=== PATIENT | male | born 1950 | race Caucasian/White ===

== ENCOUNTER 2022-08-01 02:57 | Emergency (ER) | payer MEDICARE, OTHER ==
[~2022-08-01] VITALS: Ht 177.8 cm; Wt 83.9 kg
--- NOTE | 2022-08-01 03:00 | NUR ---
gillian from [facility] c/o chronic back pain, was unable to make appt. Pt called 911 because he has not gotten any pain relief. Patient is AAOX4. Able to make needs known. Attached to monitor. Vitals checked.
[2022-08-01] MEDS ORDERED: GABAPENTIN 100 MG CAPSULE PO ONE (03:30)
--- NOTE | 2022-08-01 03:40 | NUR ---
BROUGHT TO CT DEPT
[2022-08-01] MEDS ORDERED: GABAPENTIN 100 MG CAPSULE ONE (03:53)
--- NOTE | 2022-08-01 05:40 | NUR ---
REPORT GIVEN TO TORSTEN AT [facility] OVER THE PHONE. [facility] ETA: [phone]
--- NOTE | 2022-08-01 07:53 | NUR ---
EMT AT BEDSIDE TO PICKUP PT
[2022-08-01 08:01] VITALS: BP 132/71
--- NOTE | 2022-08-01 08:02 | NUR ---
Juan carney in EDM - 08/01/22 at 0802 by EVELIO Patient discharged to snf via [facility] in stable condition, accompanied by 2 [address]. Written and verbal after care instructions given. Patient verbalizes understanding of instruction.
--- NOTE | 2022-08-01 08:02 | NUR ---
Patient discharged to snf in stable condition. Written and verbal after care instructions given. Patient verbalizes understanding of instruction.
== END 2022-08-01 08:02 ==
LOC: ER 02:59
DX: M54.50 Low back pain, unspecified (principal); M19.09 Primary osteoarthritis, other specified site; I10 Essential (primary) hypertension; Z94.0 Kidney transplant status
CPT/HCPCS: 72131-TC

== ENCOUNTER 2022-09-02 19:36 | Inpatient (IN) | payer MEDICARE, OTHER ==
[~2022-09-02] VITALS: Ht 167.6 cm; Wt 76.3 kg
--- NOTE | 2022-09-02 20:28 | NUR ---
JERRY C/O BACK PAIN X 3 DAYS
--- NOTE | 2022-09-02 21:41 | NUR ---
COVID SWAB COLLECTED
--- NOTE | 2022-09-02 21:41 | NUR ---
IV LINE RAC20G ESTABLISHED
--- NOTE | 2022-09-02 21:41 | NUR ---
BLOOD AND CULTURES COLLECTED
[2022-09-02 21:43] LABS: BASOPHILS % (AUTO) 0.5 % (0.0-2.0); EOSINOPHILS % (AUTO) 1.7 % (0.0-6.0); HEMATOCRIT 31 % (39-51); HEMOGLOBIN 10.1 g/dL (13.5-17.5); LYMPHOCYTES # (AUTO) 0.7 K/uL (0.8-4.8); LYMPHOCYTES % (AUTO) 11.2 % (20.0-44.0); MEAN CORPUSCULAR HGB CONC 33 g/dl (31.0-36.0); MEAN CORPUSCULAR VOLUME 90 fL (80-96); MONOCYTES # (AUTO) 0.7 K/uL (0.1-1.30); NEUTROPHILS % (AUTO) 75.6 % (43.0-81.0); PLATELET COUNT (AUTO) 256 K/uL (150-450); RED BLOOD CELL COUNT(AUTO) 3.46 MIL/uL (4.5-6.0); WHITE BLOOD COUNT (AUTO) 6.6 K/uL (4.3-11.0)
[2022-09-02 21:53] LABS: CALCIUM, SERUM 8.7 mg/dL (8.5-10.1); CARBON DIOXIDE 29 mmol/L (21-32); CHLORIDE 102 mmol/L (98-107); GLUCOSE 113 mg/dL (74-106); POTASSIUM 4.8 mmol/L (3.5-5.1); SODIUM SERUM 134 mmol/L (136-145); UREA NITROGEN, BLOOD 42 mg/dL (7-18)
[2022-09-02 21:59] LABS: ALANINE AMINOTRANSFERASE 36 U/L (12-78); ALBUMIN 2.6 g/dL (3.4-5.0); ALKALINE PHOSPHATASE 72 U/L (46-116); ASPARTATE AMINOTRANSFERASE 31 U/L (15-37); BILIRUBIN,DIRECT 0.6 mg/dL (0.0-0.2); BILIRUBIN,TOTAL 0.9 mg/dL (0.2-1.0); TOTAL PROTEIN, SERUM 6.8 g/dL (6.4-8.2)
[2022-09-02 22:09] LABS: BILIRUBIN,URINE NEGATIVE (NEGATIVE); COLOR,URINE YELLOW (YELLOW); LEUKOCYTE ESTERASE ,URINE NEGATIVE (NEGATIVE); NITRITE, URINE NEGATIVE (NEGATIVE); PROTEIN,URINE 1+ mg/dl (NEGATIVE); UGLUCOSE NEGATIVE (NEGATIVE)
[2022-09-02 22:14] LABS: BACTERIA,URINE None seen /HPF (None Seen); MUCUS,URINE Few /LPF (None Seen); RBC,URINE 0-2 /HPF (0-2); WBC,URINE 0-2 /HPF (0-3)
[2022-09-02] MEDS ORDERED: CEFTRIAXONE 1GM BAG (ER ONLY) 1 GM/50 ML PIGGYBACK IV ONE (23:30)
[2022-09-02] MEDS ORDERED: FOLIC ACID 1 MG TABLET PO ONE (23:30)
[2022-09-02] MEDS ORDERED: VANCOMYCIN 1 GM in IV D5W 250 ML IV ONE (23:30)
[2022-09-02] MEDS ORDERED: TAMSULOSIN 0.4 MG CAP.SR.24H PO ONE (23:30)
[2022-09-02] MEDS ORDERED: ACYCLOVIR IV 500 MG in IV D5W 100 ML IV ONE (23:30)
[2022-09-02] MEDS ORDERED: CEFTRIAXONE 1GM BAG (ER ONLY) 50 ML IV ONE (23:40)
--- NOTE | 2022-09-02 23:46 | NUR ---
PT IS RESTING COMFORTABLY IN BED, WARM BLANKETS PROVIDED. ALL NEEDS ARE MET AT THIS TIME. WILL CONTINUE TO MONITOR
[2022-09-03] MEDS ORDERED: ONDANSETRON HCL/PF 4 MG/2 ML VIAL IVP PRN
[2022-09-03] MEDS ORDERED: ACETAMINOPHEN 325 MG TABLET PO PRN
[2022-09-03] MEDS ORDERED: MAGNESIUM HYDROXIDE 30 ML UDC PO PRN
[2022-09-03] MEDS ORDERED: MAG HYDROX/AL HYDROX/SIMETH 30 ML UDC PO PRN
[2022-09-03] MEDS ORDERED: Z GUARD REMEDY 4 OZ OINT TP PRN
[2022-09-03] MEDS ORDERED: TEMAZEPAM 15 MG CAPSULE PO PRN
[2022-09-03] MEDS ORDERED: VANCOMYCIN 1 GM VIAL ONE (00:09)
[2022-09-03] MEDS ORDERED: MORPHINE SULFATE INJ 4 MG/ML DISP.SYRIN ONE (00:15)
[2022-09-03] MEDS ORDERED: ONDANSETRON HCL/PF 4 MG/2 ML VIAL IV ONE (00:30)
[2022-09-03] MEDS ORDERED: MORPHINE SULFATE INJ 2 MG/ML DISP.SYRIN IV ONE (00:30)
[2022-09-03] MEDS ORDERED: IV NS 0.9% 1,000 ML IV ONE (00:30)
--- NOTE | 2022-09-03 01:21 | NUR ---
REPORT GIVEN TO KUN VARGHESE
[2022-09-03] MEDS ORDERED: ACYCLOVIR IV 500 MG VIAL IV ONE (01:24)
--- NOTE | 2022-09-03 01:35 | NUR ---
PT WAS TRANSFERRED TO THIRD FLOOR IN STABLE CONDITION
--- NOTE | 2022-09-03 01:45 | NUR ---
CERTIFIED OPHTHALMIC ASSISTANT NOTES PATIENT RECEIVED FROM ER VIA RZACK ACCOMPANIED BY RN AND CHURN DRILLER HELPER. ON [address] TOLERATING WELL. 02 SAT 100%. VITAL SIGNS TAKEN AND RECORDED. IV ACCESS AT RIGHT AC #20, INTACT AND PATENT, INFUSING NS @75ML/H. SKIN ISSUES NOTED AND DOCUMENTED. ORIENTED TO ROOM SET-UP. SAFETY MEASURES INITIATED. COMPLAINS OF BACK PAIN, ACHING AND MOANING, RATED 6/10 PAIN SCALE. GIVEN NORCO 1 TAB. TOLERATING WELL. ADMINISTERED ORDERED MEDICATION. WILL CONTINUE TO MONITOR.
[2022-09-03] MEDS: IV NS 0.9% 1,000 ML IV PRN ×2 (03:05→16:24)
[2022-09-03] MEDS: HYDROCODONE/APAP 5/325MG TABLET PO PRN ×2 (04:15→13:51)
[2022-09-03] MEDS ORDERED: FOLIC ACID 1 MG TABLET ONE (04:27)
[2022-09-03] MEDS ORDERED: TAMSULOSIN 0.4 MG CAP.SR.24H ONE (04:28)
--- NOTE | 2022-09-03 06:48 | NUR ---
RN CLOSING NOTES PATIENT LYING AWAKE IN BED. ON 02 2LPM VIA NC. TOLERATING WELL. 02 SAT 100%. VITAL SIGNS TAKEN AND RECORDED. IV ACCESS AT RIGHT AC #20, INTACT AND PATENT, INFUSING NS @75ML/H. SKIN ISSUES NOTED AND DOCUMENTED. SAFETY MEASURES MAINTAINED. NO COMPLAIN OF PAIN AT THIS TIME. TOLERATING WELL. ON REVERSE ISOLATION/ CONTACT PREC. WILL ENDORSE TO NEXT SHIFT RN FOR NEDRA.
--- NOTE | 2022-09-03 07:30 | NUR ---
MS RN OPENING NOTES RECEIVED PATIENT ON BED AWAKE AND A/O X3-4. ON O2 AT 2LPM VIA NASAL CANNULA TOLERATING WELL. NO SOB NOTED. NOT IN DISTRESS. WITH COMPLAINTS OF PAIN AT THE CHEST AND BACK AT THE SCALE OF 5/10. COMFORT MEASURES PROVIDED. WITH IV ACCESS AT THE RIGHT AC G20 WITH IVF NS AT 75ML/HR INFUSING WELL. SAFETY MEASURES IN PLACED. CALL LIGHT WITHIN REACH. BED ON LOWEST LOCKED POSITION, SIDE RAILS UP X2. WILL CONTINUE TO MONITOR.
[2022-09-03 08:00] VITALS: BP 109/58
[2022-09-03 08:00] LABS: BASOPHILS % (AUTO) 0.5 % (0.0-2.0); EOSINOPHILS % (AUTO) 2.3 % (0.0-6.0); HEMATOCRIT 29 % (39-51); HEMOGLOBIN 9.5 g/dL (13.5-17.5); LYMPHOCYTES # (AUTO) 0.8 K/uL (0.8-4.8); LYMPHOCYTES % (AUTO) 13.5 % (20.0-44.0); MEAN CORPUSCULAR HGB CONC 33 g/dl (31.0-36.0); MEAN CORPUSCULAR VOLUME 90 fL (80-96); MONOCYTES # (AUTO) 0.7 K/uL (0.1-1.30); MONOCYTES % (AUTO) 12.7 % (2.0-12.0); NEUTROPHILS # (AUTO) 4.1 K/uL (1.8-8.9); PLATELET COUNT (AUTO) 246 K/uL (150-450); WHITE BLOOD COUNT (AUTO) 5.8 K/uL (4.3-11.0)
[2022-09-03 08:14] LABS: CALCIUM, SERUM 8.5 mg/dL (8.5-10.1); CARBON DIOXIDE 26 mmol/L (21-32); CHLORIDE 103 mmol/L (98-107); CREATININE 1.8 mg/dL (0.6-1.3); GLUCOSE 114 mg/dL (74-106); MAGNESIUM 2.5 mg/dL (1.8-2.4); PHOSPHORUS 5.1 mg/dL (2.5-4.9); POTASSIUM 4.1 mmol/L (3.5-5.1); SODIUM SERUM 137 mmol/L (136-145); THYROID STIMULATING HORMONE 1.809 uIU/mL (0.358-3.74); UREA NITROGEN, BLOOD 38 mg/dL (7-18)
--- NOTE | 2022-09-03 08:22 | NUR ---
WOUND CARE CONSULT: PT PRESENTS WITH LARGE AREA OF DRY LESIONS TO ANTERIOR CHEST WELL SOME OPEN LESIONS WITH CRUSTING TO RT UPPER BACK, PRESENT ON ADMISSION. RECOMMENDATIONS MADE FOR SKIN PROTECTION AND WOUND CARE. DISCUSSED WITH NURSING STAFF. PT STATES THAT LESIONS IN THE BACK ARE EXTREMELY PAINFUL. MD IN AGREEMENT WITH PLAN OF CARE.
[2022-09-03] MEDS: MYCOPHENOLATE MOFETIL 250 MG CAPSULE PO SCH ×2 (08:42→20:15)
[2022-09-03] MEDS: VALSARTAN 80 MG TABLET PO SCH (08:42)
[2022-09-03] MEDS: predniSONE 5 MG TABLET PO SCH (08:42)
[2022-09-03] MEDS: GABAPENTIN 100 MG CAPSULE PO SCH ×2 (08:42→16:15)
[2022-09-03] MEDS: MULTIVITAMIN/LUTEIN/MINERALS 1 TAB PO SCH (08:42)
[2022-09-03] MEDS: PANTOPRAZOLE 40 MG TABLET.DR PO SCH (08:43)
[2022-09-03] MEDS: DOXYCYCLINE HYCLATE (100 MG) 100 MG TABLET PO SCH ×2 (08:43→20:16)
[2022-09-03] MEDS: MORPHINE SULFATE INJ 2 MG/ML DISP.SYRIN IV PRN ×2 (08:44→20:09)
[2022-09-03] MEDS: APIXABAN 5 MG TABLET PO SCH ×2 (08:44→16:16)
[2022-09-03] MEDS ORDERED: predniSONE 10 MG TABLET PO SCH (09:00)
[2022-09-03] MEDS ORDERED: ACYCLOVIR IV 500 MG in IV D5W 100 ML IV SCH (09:00)
[2022-09-03] MEDS ORDERED: VALS80TA31 PO (09:23)
[2022-09-03] MEDS ORDERED: CYCL25CA7 PO (09:23)
[2022-09-03] MEDS ORDERED: VITA80008 PO (09:23)
[2022-09-03] MEDS ORDERED: CYCL100C8 PO (09:23)
[2022-09-03] MEDS ORDERED: MAGN500C16 PO (09:23)
[2022-09-03] MEDS ORDERED: PYRI100T10 PO (09:23)
[2022-09-03] MEDS ORDERED: CYAN500T9 PO (09:23)
[2022-09-03] MEDS ORDERED: FOLI0.4T6 PO (09:23)
[2022-09-03] MEDS ORDERED: VITA1TAB56 PO (09:23)
[2022-09-03] MEDS ORDERED: OMEP20CA15 PO (09:23)
[2022-09-03] MEDS ORDERED: VITA-354 PO (09:23)
[2022-09-03] MEDS ORDERED: PRED5TAB PO (09:23)
[2022-09-03] MEDS ORDERED: PENT400T17 PO (09:23)
[2022-09-03] MEDS ORDERED: TAMS-12 PO (09:23)
[2022-09-03] MEDS ORDERED: OMEG1CAP PO (09:23)
[2022-09-03] MEDS ORDERED: APIX5TAB PO (09:23)
[2022-09-03] MEDS ORDERED: FINA5TAB11 PO (09:23)
[2022-09-03] MEDS ORDERED: ATOR40TA PO (09:23)
[2022-09-03] MEDS ORDERED: MULT-447 PO (09:23)
[2022-09-03] MEDS ORDERED: THIA100T70 PO (09:23)
[2022-09-03] MEDS ORDERED: GABA-536 PO (09:23)
[2022-09-03] MEDS ORDERED: MYCO500T5 PO (09:23)
[2022-09-03] MEDS ORDERED: ACYCLOVIR IV 1 GM in IV D5W 250 ML IV SCH (13:00)
[2022-09-03 16:00] VITALS: BP 105/56
--- NOTE | 2022-09-03 18:35 | NUR ---
MS RN CLOSING NOTES PATIENT ON BED AWAKE AND A/O X3-4. ON O2 AT 2LPM VIA NASAL CANNULA TOLERATING WELL. NO SOB NOTED. NOT IN DISTRESS. WITH COMPLAINTS OF PAIN AT THE CHEST AND BACK AT THE SCALE OF 5/10. COMFORT MEASURES PROVIDED. WITH IV ACCESS AT THE RIGHT AC G20 WITH IVF NS AT 75ML/HR INFUSING WELL. DUE MEDS GIVEN. SAFETY MEASURES IN PLACED. CALL LIGHT WITHIN REACH. BED ON LOWEST LOCKED POSITION, SIDE RAILS UP X2. WILL ENDORSE TO NEXT SHIFT FOR NEDRA.
[2022-09-03 20:00] VITALS: BP 109/52
--- NOTE | 2022-09-03 21:10 | NUR ---
MS RN OPENING NOTES RECEIVED PATIENT ON BED AWAKE AND A/O X3-4. ON O2 AT 2LPM VIA NASAL CANNULA TOLERATING WELL. NO SOB NOTED. NOT IN DISTRESS. WITH COMPLAINTS OF PAIN AT THE CHEST AND BACK AT THE SCALE OF 8/10. GIVEN MORPHINE IV PRN ORDERED. DUE MEDS GIVEN. COMFORT MEASURES PROVIDED. WITH IV ACCESS AT THE RIGHT AC G20 WITH IVF NS AT 75ML/HR INFUSING WELL. SAFETY MEASURES IN PLACED. CALL LIGHT WITHIN REACH. BED ON LOWEST LOCKED POSITION, SIDE RAILS UP X2. WILL CONTINUE TO MONITOR.
[2022-09-03] MEDS: ATORVASTATIN 40 MG TABLET PO SCH (21:21)
[2022-09-03] MEDS: CEFTRIAXONE 2 G in IV D5W 50 ML IV SCH (21:21)
--- NOTE | 2022-09-03 21:43 | NUR ---
RN NOTES PATIENT REQUESTED FOR A SLEEPING PILL. HES EXHAUSTED AND WANTED TO SLEEP VERBALIZED. GIVEN RESTORIL ORALLY PRN ORDERED. KEPT COMFORTABLE. WILL CONTINUE TO MONITOR.
[2022-09-03] MEDS ORDERED: CEFTRIAXONE 1 G in IV D5W 50 ML IV SCH (22:00)
[2022-09-03] MEDS ORDERED: VANCOMYCIN HCL 0.75 GM in IV D5W 250 ML IV SCH (23:00)
[2022-09-04] MEDS: IV NS 0.9% 1,000 ML IV PRN ×2 (06:20→18:46)
--- NOTE | 2022-09-04 06:37 | NUR ---
MS RN CLOSING NOTES PATIENT LYING IN BED ASLEEP. A/O X3-4. ON O2 AT 2LPM VIA NASAL CANNULA TOLERATING WELL. NO SOB NOTED. NOT IN DISTRESS. NO COMPLAINS OF PAIN AT THIS TIME. DUE MEDS GIVEN. COMFORT MEASURES PROVIDED. WITH IV ACCESS AT THE RIGHT AC G20 WITH IVF NS AT 75ML/HR INFUSING WELL. SAFETY MEASURES IN PLACED. CALL LIGHT WITHIN REACH. BED ON LOWEST LOCKED POSITION, SIDE RAILS UP X2. WILL ENDORSE TO NEXT SHIFT RN FOR NEDRA.
--- NOTE | 2022-09-04 07:25 | NUR ---
MS RN OPENING NOTES RECEIVED PATIENT RESTING IN BED AWAKE, A/O X3-4, ABLE TO MAKE NEEDS KNOWN. ON O2, 2LPM VIA NASAL CANNULA, TOLERATING WELL. NO SOB OR DISTRESS NOTED. NO PAIN NOTED AT THIS TIME. IV ACCESS AT THE RIGHT AC G20 WITH IVF NS AT 75ML/HR INFUSING WELL WITH NO SIGNS OF INFILTRATION OR DISCOMFORT. SAFETY MEASURES IN PLACED. CALL LIGHT AND TRAY WITHIN REACH. BED IN LOWEST LOCKED POSITION, SIDE RAILS UP X2. WILL CONTINUE TO MONITOR.
[2022-09-04] MEDS: PANTOPRAZOLE 40 MG TABLET.DR PO SCH (07:37)
[2022-09-04 08:00] VITALS: BP 139/67
[2022-09-04 08:00] LABS: CALCIUM, SERUM 8.4 mg/dL (8.5-10.1); CARBON DIOXIDE 25 mmol/L (21-32); CHLORIDE 105 mmol/L (98-107); CREATININE 1.9 mg/dL (0.6-1.3); GLUCOSE 109 mg/dL (74-106); POTASSIUM 4.3 mmol/L (3.5-5.1); SODIUM SERUM 140 mmol/L (136-145); UREA NITROGEN, BLOOD 34 mg/dL (7-18)
[2022-09-04] MEDS: DOXYCYCLINE HYCLATE (100 MG) 100 MG TABLET PO SCH ×2 (08:23→21:06)
[2022-09-04] MEDS: predniSONE 5 MG TABLET PO SCH (08:24)
[2022-09-04] MEDS: GABAPENTIN 100 MG CAPSULE PO SCH ×2 (08:24→16:25)
[2022-09-04] MEDS: MULTIVITAMIN/LUTEIN/MINERALS 1 TAB PO SCH (08:24)
[2022-09-04] MEDS: MYCOPHENOLATE MOFETIL 250 MG CAPSULE PO SCH ×2 (08:25→21:06)
[2022-09-04] MEDS: VALSARTAN 80 MG TABLET PO SCH (08:25)
[2022-09-04] MEDS: MORPHINE SULFATE INJ 2 MG/ML DISP.SYRIN IV PRN ×2 (08:28→16:27)
--- NOTE | 2022-09-04 08:30 | NUR ---
RN NOTE PATIENT COMPLAINING OF PAIN WITH FACIAL GRIMACING AND MOANING. PAIN THROUGHOUT BODY AND BACK. GAVE MORPHINE, WHICH WAS EFFECTIVE LOWERING PAIN RATE FROM AN 8 TO A 3.
[2022-09-04] MEDS: APIXABAN 5 MG TABLET PO SCH ×2 (09:10→16:26)
[2022-09-04 16:00] VITALS: BP 135/71
--- NOTE | 2022-09-04 18:27 | NUR ---
MS RN CLOSING NOTE PATIENT IN BED RESTING AT THIS TIME. A/O X 4, ABLE TO MAKE NEEDS KNOWN. ON ROOM AIR, BREATHING EVENLY, NON-LABORED, NO SOB OR RESPIRATORY DISTRESS NOTED, IV ACCESS ON LAC #22 INFUSING D5NS AT 50ML.HR. ALL NEEDS MET AT THIS TIME. PAIN MANAGED VIA MEDICATION AND TOLERABLE AT THIS TIME. SAFETY PRECAUTIONS IN PLACE; BED IN LOWEST LOCKED POSITION, SIDE RAILS UP X2, CALL LIGHT AND TRAY WITHIN REACH. WILL ENDORSE TO LOCK TECHNICIAN NURSE FOR NEDRA.
[2022-09-04 20:00] VITALS: BP 130/69
[2022-09-04] MEDS: ATORVASTATIN 40 MG TABLET PO SCH (21:06)
[2022-09-04] MEDS: CEFTRIAXONE 2 G in IV D5W 50 ML IV SCH (21:06)
[2022-09-05] MEDS: MORPHINE SULFATE INJ 2 MG/ML DISP.SYRIN IV PRN ×3 (02:41→22:56)
--- NOTE | 2022-09-05 02:50 | NUR ---
RN NOTES - PATIENT COMPLAINS OF PAIN AT BACK. RATED 9/10. MOANING AND IRRITABLE. GIVEN MORPHINE IV PRN ORDERED. TOLERATED WELL. WOUND DRESSING DONE. FOR WOUND DEBRIDEMENT TODAY. TO SECURE CONSENT. KEPT COMFORTABLE.
[2022-09-05] MEDS ORDERED: LIDOCAINE 1%-EPI 1:100,000 20 ML VIAL TP ONE (06:00)
[2022-09-05] MEDS ORDERED: SILVER NITRATE APPLICATOR 1 EA BOX TP SCH (06:00)
--- NOTE | 2022-09-05 06:48 | NUR ---
MS RN CLOSING NOTE PATIENT IN BED RESTING AT THIS TIME. A/O X 4, ABLE TO MAKE NEEDS KNOWN. ON ROOM AIR, BREATHING EVENLY, NON-LABORED, NO SOB OR RESPIRATORY DISTRESS NOTED, IV ACCESS ON LAC #22 INFUSING D5NS AT 50ML.HR. ALL NEEDS MET AT THIS TIME. PAIN MANAGED VIA MEDICATION AND TOLERABLE AT THIS TIME. SAFETY PRECAUTIONS IN PLACE; BED IN LOWEST LOCKED POSITION, SIDE RAILS UP X2, CALL LIGHT AND TRAY WITHIN REACH. WILL ENDORSE TO DAY SHIFT NURSE FOR NEDRA.
[2022-09-05 08:00] VITALS: BP 110/63
--- NOTE | 2022-09-05 08:01 | NUR ---
RN OPENING NOTE PATIENT AWAKE IN BED RESTING AT THE MOMENT A/O X 3-4. NO S/S OF PAIN NOTED AT THIS TIME. ON 2L OXYGEN VIA NC, NO DISTRESS OR SHORTNESS OF BREATH NOTED. IV ACCESS RAC #20G, INTACT, PATENT AND FLUSHING WELL. FALL AND SAFETY MEASURES IN PLACE, BED ALARM ON, BED IN LOW AND LOCK POSITION, CALL LIGHT AND TABLE WITHIN EASY REACH, SIDE RAILS UP X2. WILL CONTINUE TO MONITOR.
[2022-09-05 08:04] LABS: BASOPHILS % (AUTO) 0.6 % (0.0-2.0); HEMATOCRIT 28 % (39-51); HEMOGLOBIN 9.1 g/dL (13.5-17.5); LYMPHOCYTES % (AUTO) 19.1 % (20.0-44.0); MEAN CORPUSCULAR HGB CONC 33 g/dl (31.0-36.0); MEAN CORPUSCULAR VOLUME 91 fL (80-96); MONOCYTES # (AUTO) 0.4 K/uL (0.1-1.30); MONOCYTES % (AUTO) 8.4 % (2.0-12.0); NEUTROPHILS # (AUTO) 3.6 K/uL (1.8-8.9); NEUTROPHILS % (AUTO) 69.9 % (43.0-81.0); PLATELET COUNT (AUTO) 245 K/uL (150-450); RED BLOOD CELL COUNT(AUTO) 3.04 MIL/uL (4.5-6.0); WHITE BLOOD COUNT (AUTO) 5.2 K/uL (4.3-11.0)
[2022-09-05 08:20] LABS: CALCIUM, SERUM 8.2 mg/dL (8.5-10.1); CARBON DIOXIDE 26 mmol/L (21-32); CHLORIDE 108 mmol/L (98-107); CREATININE 1.8 mg/dL (0.6-1.3); GLUCOSE 88 mg/dL (74-106); MAGNESIUM 2.1 mg/dL (1.8-2.4); PHOSPHORUS 4.3 mg/dL (2.5-4.9); POTASSIUM 4.1 mmol/L (3.5-5.1); SODIUM SERUM 142 mmol/L (136-145); UREA NITROGEN, BLOOD 28 mg/dL (7-18)
[2022-09-05] MEDS: APIXABAN 5 MG TABLET PO SCH ×2 (09:00→17:49)
[2022-09-05] MEDS: IV NS 0.9% 1,000 ML IV PRN (09:22)
[2022-09-05] MEDS: DOXYCYCLINE HYCLATE (100 MG) 100 MG TABLET PO SCH ×2 (09:23→21:02)
[2022-09-05] MEDS: GABAPENTIN 100 MG CAPSULE PO SCH (09:23)
[2022-09-05] MEDS: VALSARTAN 80 MG TABLET PO SCH (09:23)
[2022-09-05] MEDS: PANTOPRAZOLE 40 MG TABLET.DR PO SCH (09:24)
[2022-09-05] MEDS: MYCOPHENOLATE MOFETIL 250 MG CAPSULE PO SCH ×2 (09:27→21:02)
[2022-09-05] MEDS: MULTIVITAMIN/LUTEIN/MINERALS 1 TAB PO SCH (09:27)
[2022-09-05] MEDS: predniSONE 5 MG TABLET PO SCH ×2 (09:28→17:48)
--- NOTE | 2022-09-05 10:06 | NUR ---
RN note 0900 apixaban was held for wound debridement scheduled for today.
[2022-09-05] MEDS ORDERED: MYCOPHENOLATE MOFETIL 250 MG CAPSULE PO SCH (13:00)
[2022-09-05 16:00] VITALS: BP 138/63
[2022-09-05] MEDS ORDERED: APIXABAN 5 MG TABLET PO SCH (17:00)
[2022-09-05] MEDS ORDERED: GABAPENTIN 400 MG CAPSULE PO SCH (17:00)
[2022-09-05] MEDS: TAMSULOSIN 0.4 MG CAP.SR.24H PO SCH (17:48)
[2022-09-05] MEDS: GABAPENTIN 400 MG CAPSULE PO SCH (17:48)
[2022-09-05] MEDS ORDERED: VALSARTAN 80 MG TABLET PO SCH (18:00)
[2022-09-05] MEDS ORDERED: ATORVASTATIN 40 MG TABLET PO SCH (18:00)
[2022-09-05] MEDS: PENTOXIFYLLINE 400 MG TABLET.SA PO SCH (18:13)
--- NOTE | 2022-09-05 18:53 | NUR ---
RN CLOSING NOTE PATIENT AWAKE IN BED RESTING AT THE MOMENT A/O X 3-4. NO S/S OF PAIN NOTED AT THIS TIME. ON 2L OXYGEN VIA NC, NO DISTRESS OR SHORTNESS OF BREATH NOTED. IV ACCESS RAC #20G, INTACT, PATENT AND FLUSHING WELL. SCHEDULE MEDICATIONS ADMINISTERED. PATIENT WILL HAVE WOUND DEBRIDEMENT TOMORROW. FALL AND SAFETY MEASURES IN PLACE, BED ALARM ON, BED IN LOW AND LOCK POSITION, CALL LIGHT AND TABLE WITHIN EASY REACH, SIDE RAILS UP X2. WILL ENDORSE TO LACQUER MACHINE FEEDER..
[2022-09-05 20:00] VITALS: BP 136/52
--- NOTE | 2022-09-05 20:13 | NUR ---
RN OPENING NOTE PATIENT AWAKE IN BED RESTING AT THE MOMENT A/O X 3-4. NO S/S OF PAIN NOTED AT THIS TIME. ON 2L OXYGEN VIA NC, NO DISTRESS OR SHORTNESS OF BREATH NOTED. IV ACCESS RAC #20G, INTACT, PATENT AND FLUSHING WELL. SCHEDULE MEDICATIONS ADMINISTERED. PATIENT WILL HAVE WOUND DEBRIDEMENT TOMORROW. FALL AND SAFETY MEASURES IN PLACE, BED ALARM ON, BED IN LOW AND LOCK POSITION, CALL LIGHT AND TABLE WITHIN EASY REACH, SIDE RAILS UP X2. WILL CONTINUE TO MONITOR
[2022-09-05] MEDS: CEFTRIAXONE 2 G in IV D5W 50 ML IV SCH (21:03)
[2022-09-05] MEDS: ATORVASTATIN 40 MG TABLET PO SCH (21:03)
[2022-09-05] MEDS: MAGNESIUM OXIDE 400 MG TABLET PO SCH (21:03)
--- NOTE | 2022-09-05 23:00 | NUR ---
RN NOTES -PAIN PATIENT COMPLAINS OF PAIN AT RIGHT CHEST WALL WOUND. TIGHTNESS AND ITCHY. MOANING AND SHOUTING. PLACED ICE PACK AT THE AREA. NO RELIEF. RATED PAIN 10/10. GIVEN MORPHINE IV PRN ORDERED. KEPT COMFORTABLE
--- NOTE | 2022-09-06 06:34 | NUR ---
RN CLOSING NOTE PATIENT AWAKE IN BED RESTING AT THE MOMENT A/O X 3-4. NO S/S OF PAIN NOTED AT THIS TIME. ON 2L OXYGEN VIA NC, NO DISTRESS OR SHORTNESS OF BREATH NOTED. IV ACCESS RAC #20G, INTACT, PATENT AND FLUSHING WELL. FALL AND SAFETY MEASURES IN PLACE, BED ALARM ON, BED IN LOW AND LOCK POSITION, CALL LIGHT AND TABLE WITHIN EASY REACH, SIDE RAILS UP X2. WILL ENDORSE TO NEXT SHIFT RN FOR NEDRA.
[2022-09-06] MEDS ORDERED: OMEPRAZOLE 20 MG CAPSULE.DR PO SCH (07:30)
[2022-09-06 07:33] LABS: CALCIUM, SERUM 8.3 mg/dL (8.5-10.1); CARBON DIOXIDE 24 mmol/L (21-32); CHLORIDE 109 mmol/L (98-107); CREATININE 1.6 mg/dL (0.6-1.3); GLUCOSE 100 mg/dL (74-106); MAGNESIUM 1.9 mg/dL (1.8-2.4); PHOSPHORUS 4.3 mg/dL (2.5-4.9); POTASSIUM 4.5 mmol/L (3.5-5.1); SODIUM SERUM 142 mmol/L (136-145); UREA NITROGEN, BLOOD 27 mg/dL (7-18)
[2022-09-06 07:40] LABS: BASOPHILS % (AUTO) 0.5 % (0.0-2.0); EOSINOPHILS % (AUTO) 0.5 % (0.0-6.0); HEMATOCRIT 28 % (39-51); LYMPHOCYTES # (AUTO) 0.8 K/uL (0.8-4.8); LYMPHOCYTES % (AUTO) 13.3 % (20.0-44.0); MEAN CORPUSCULAR HGB CONC 33 g/dl (31.0-36.0); MEAN CORPUSCULAR VOLUME 92 fL (80-96); MONOCYTES # (AUTO) 0.4 K/uL (0.1-1.30); MONOCYTES % (AUTO) 6.7 % (2.0-12.0); NEUTROPHILS # (AUTO) 4.6 K/uL (1.8-8.9); PLATELET COUNT (AUTO) 263 K/uL (150-450); RED BLOOD CELL COUNT(AUTO) 3.01 MIL/uL (4.5-6.0); WHITE BLOOD COUNT (AUTO) 5.8 K/uL (4.3-11.0)
[2022-09-06] MEDS: PANTOPRAZOLE 40 MG TABLET.DR PO SCH (07:44)
--- NOTE | 2022-09-06 07:49 | NUR ---
RN OPENING NOTE RECEIVED PATIENT AWAKE IN BED RESTING AT THE MOMENT A/O X 3-4. VERBALLY RESPONSIVE , NO C/O OF PAIN AND DISCOMFORT NOTED AT THIS TIME. ON 2L OXYGEN VIA NC, NO SOB OR DISTRESS NOTED AT THIS TIME . IV ACCESS RAC #20G, INTACT, WITH NS @75ML /HOUR . FALL AND SAFETY MEASURES IN PLACE, BED ALARM ON, BED IN LOW AND LOCK POSITION, CALL LIGHT AND TABLE WITHIN EASY REACH, SIDE RAILS UP X2. WILL CONTINUE TO MONITOR FOR ANY CHANGES .
[2022-09-06 08:00] VITALS: BP 135/62
[2022-09-06] MEDS: DOXYCYCLINE HYCLATE (100 MG) 100 MG TABLET PO SCH ×2 (08:26→21:00)
[2022-09-06] MEDS: GABAPENTIN 400 MG CAPSULE PO SCH ×2 (08:27→16:11)
[2022-09-06] MEDS: predniSONE 5 MG TABLET PO SCH ×2 (08:27→17:12)
[2022-09-06] MEDS: MYCOPHENOLATE MOFETIL 250 MG CAPSULE PO SCH ×2 (08:27→21:00)
[2022-09-06] MEDS: MULTIVITAMIN/LUTEIN/MINERALS 1 TAB PO SCH (08:27)
[2022-09-06] MEDS: VALSARTAN 80 MG TABLET PO SCH (08:28)
[2022-09-06] MEDS: MUPIROCIN OINT 2% 22 GM TUBE NS SCH ×3 (08:32→21:00)
[2022-09-06] MEDS: APIXABAN 5 MG TABLET PO SCH ×2 (08:34→16:12)
[2022-09-06] MEDS ORDERED: FINASTERIDE (5 MG) 5 MG TABLET PO SCH (09:00)
[2022-09-06] MEDS ORDERED: PYRIDOXINE HCL 50 MG TABLET PO SCH (09:00)
[2022-09-06] MEDS: PENTOXIFYLLINE 400 MG TABLET.SA PO SCH ×2 (10:01→16:11)
[2022-09-06] MEDS: MORPHINE SULFATE INJ 2 MG/ML DISP.SYRIN IV PRN ×2 (11:51→16:19)
[2022-09-06] MEDS ORDERED: GABA-536 PO (14:09)
[2022-09-06] MEDS ORDERED: DOXY100T2 PO (14:09)
[2022-09-06 16:00] VITALS: BP 140/66
[2022-09-06] MEDS: TAMSULOSIN 0.4 MG CAP.SR.24H PO SCH (17:11)
--- NOTE | 2022-09-06 18:55 | NUR ---
MS RAN DISCHARGE NOTES PATIENT IS WITH ORDER FOR DISCHARGE TO SNF , DISCHARGE PAPERS TIFFANI PREPARED ,SON ABHILASH AWARE AND EXPLAINED TO THE PT ABOUT THE SNF DISCHARGE , DISCHARGE INSTRUCTIONS PROVIDED REGARDING MEDICATIONS , VESICLES CRUSTED OVER NOTED ON THE RIGHT CHEST WALL AND POSTERIOR BACK , PATIENT [facility] TO [facility] AND REPORT GIVEN TO [facility] - RN , ALL BELONGINGS WERE ACCOUNTED FOR AND FORM WAS SIGNED BY PATIENT , ALL DUE MEDS GIVEN ORDERED , NO C/O OF PAIN AND DISCOMFORT AT THIS TIME , ISOLATION WAS D/C BY INFECTIOUS , PATIENT WILL BE SENIOR POWER SCHEDULER AROUND 0 VIA AMBULANCE AND ENDORSED TO THE NEXT SHIFT .
--- NOTE | 2022-09-06 19:15 | NUR ---
MS RN OPENING NOTES RECEIVED PATIENT LAYING IN BED AWAKE. A/O X3. BREATHING EVEN AND NON-LABORED ON ROOM AIR. NOT IN APPARENT DISTRESS. NO C/O PAIN AT THIS TIME. HAS RIGHT FOREARM IV ACCESS #20G AND SALINE LOCKED. NO S/S OF INFILTRATION NOTED. SAFETY PRECAUTIONS IN PLACE: BED LOCKED AND LOW, SIDE RAILS UP X2, CALL LIGHT WITHIN REACH. AWAITING FOR TRANSPORTATION.
[2022-09-06] MEDS: HYDROCODONE/APAP 5/325MG TABLET PO PRN (19:58)
--- NOTE | 2022-09-06 19:59 | NUR ---
MS RN NOTES PATIENT C/O SEVERE CHEST PAIN RADIATING TO HIS BACK. ADMINISTERED PRN NORCO [phone], TOLERATED WELL.
[2022-09-06 20:00] VITALS: BP 159/82
--- NOTE | 2022-09-06 20:11 | NUR ---
MS WAREHOUSE PRODUCTION WORKER NOTES PATIENT LAYING IN BED SLEEPING INTERMITTENTLY, EASY TO AROUSE. RECEIVED PRN NORCO [phone] FOR CHEST AND BACK PAIN. NO RESPIRATORY OR CARDIAC DISTRESS NOTED. AFEBRILE. REMOVED RIGHT FOREARM IV ACCESS, APPLIED PRESSURE TO STOP BLEEDING. DISCHARGE ORDER RECEIVED FROM JESSE DURAN. DISCHARGE INSTRUCTIONS GIVEN TO PATIENT AND EMT. ALL BELONGINGS ACCOUNTED FOR. PICKED-UP BY 2 MALE EMT AT 2010. LEFT HOSPITAL VIA GURNEY IN STABLE CONDITION.
[2022-09-06] MEDS: CEFTRIAXONE 2 G in IV D5W 50 ML IV SCH (21:40)
[2022-09-06] MEDS: MAGNESIUM OXIDE 400 MG TABLET PO SCH (21:40)
[2022-09-06] MEDS: ATORVASTATIN 40 MG TABLET PO SCH (21:40)
== END 2022-09-06 20:15 | DRG 595 ==
LOC: ER 19:37 → MED 09-03 01:13
PROVIDERS: ADMIT Nurse Practitioner Acute Care; ATTEND Nurse Practitioner Acute Care
DX: B02.9 Zoster without complications (principal); N17.0 Acute kidney failure with tubular necrosis; L03.313 Cellulitis of chest wall; D68.59 Other primary thrombophilia; I69.354 Hemiplegia and hemiparesis following cerebral infarction affecting left non-dominant side; Z94.0 Kidney transplant status; I12.9 Hypertensive chronic kidney disease with stage 1 through stage 4 chronic kidney disease, or unspecified chronic kidney disease; N18.9 Chronic kidney disease, unspecified; D63.1 Anemia in chronic kidney disease; E78.5 Hyperlipidemia, unspecified; Z74.09 Other reduced mobility; Z20.822 Contact with and (suspected) exposure to COVID-19
CPT/HCPCS: 36415; 71045-TC; 80048-TC; 80076-TC; 81001; 83605-TC; 83735-TC; 84100-TC; 84443-TC; 84484-TC; 85025-TC; 85730-TC; 86803; 87040-TC; 87081-TC; 87086-TC; 87806; 97112-TC; 97530-TC; A6253; A6403; C9803; G0378; J0133; J0696; J2270; J2405; J3370; J3490; J7030; J7060; J7502; J7512; J7515; J7517